=== PATIENT | male | born 1970 | race Caucasian/White ===

== ENCOUNTER 2018-03-25 21:40 | Inpatient (IN) ==
[2018-03-25] MEDS ORDERED: Aztreonam Inj 2 GM in Sodium Chloride 0.9% Inj 100 ML IV.SIG STA (22:29)
[2018-03-25] MEDS ORDERED: Ketorolac Inj 30 MG/ML (IVP) Vial IV.PUSH ONE (22:29)
[2018-03-25] MEDS ORDERED: Sod Chloride 0.9% Inj 1,000 ML IV.SIG SCH (22:30)
--- NOTE | 2018-03-25 22:57 | XR ---
EXAM DATE: 03/25/2018 10:40 PM EDT AGE/SEX: 47 years / Male INDICATIONS: Fever starting today CLINICAL DATA: This is the patient's initial encounter. Patient reports that signs and symptoms have been present for 1 day and indicates a pain score of 0/10. MEDICAL/SURGICAL HISTORY: None. None. COMPARISON: [facility] [place], CHEST SINGLE AP, 04/03/2016. . FINDINGS: A single AP view of the chest demonstrates the lungs to be symmetrically aerated without evidence of mass, infiltrate or effusion. The cardiomediastinal contours are unremarkable. Osseous structures a re intact. CONCLUSION: The lungs are clear. Electronically signed by: Yash Rider MD 03/25/2018 10:56 PM EDT
[2018-03-25 23:10] LABS: Baso % (Auto) 0.4 % (0.0-2.0); Eos # (Auto) 0.1 th/mm3 (0.0-0.4); Eos % (Auto) 0.9 % (0.0-4.0); Hematocrit 41.3 % (39.0-51.0); Lymph % (Auto) 14.1 % (9.0-44.0); Mean Corpuscular Hemoglobin 32.3 pg (27.0-34.0); Mean Corpuscular Volume 94.8 fL (80.0-100.0); Mean Platelet Volume 7.5 fL (7.0-11.0); Mono # (Auto) 0.7 th/mm3 (0.0-0.9); Mono % (Auto) 9.3 % (0.0-8.0); Neut # (Auto) 5.6 th/mm3 (1.8-7.7); Neut % (Auto) 75.3 % (16.0-70.0); Platelet Count 260 th/mm3 (150-450); Red Blood Count 4.35 mil/mm3 (4.50-5.90); Red Cell Distribution Width 12.3 % (11.6-17.2); White Blood Count 7.4 th/mm3 (4.0-11.0)
[2018-03-25 23:19] LABS: Chloride 98 meq/L (98-107); Potassium 3.4 meq/L (3.5-5.1); Sodium 136 meq/L (136-145)
[2018-03-25 23:22] LABS: Albumin 3.8 g/dL (3.4-5.0); Anion Gap 8 meq/L (5-15); Blood Urea Nitrogen 14 mg/dL (7-18); Calcium 8.9 mg/dL (8.5-10.1); Glucose,Random 97 mg/dL (74-106)
[2018-03-25 23:23] LABS: Prothrombin Time 10.2 sec (9.8-11.6)
[2018-03-25 23:25] LABS: Alanine Aminotransferase 19 U/L (12-78); Aspartate Aminotransferase 24 U/L (15-37)
[2018-03-25 23:26] LABS: Glomerular Filtration Rate 88 mL/min (>89)
[2018-03-25 23:27] LABS: Total Protein 7.8 g/dL (6.4-8.2)
[2018-03-25 23:28] LABS: Alkaline Phosphatase 111 U/L (45-117)
--- NOTE | 2018-03-26 02:24 | CT ---
EXAM DATE: 03/26/2018 1:58 AM EDT AGE/SEX: 47 years / Male INDICATIONS: Right side tooth pain and swollen for two days. CLINICAL DATA: This is the patient's initial encounter. Patient reports that signs and symptoms have been present for 2 days and indicates a pain score of 6/10. MEDICAL/SURGICAL HISTORY: None. None. RADIATION DOSE: 13.98 CTDI (mGy) COMPARISON: [facility] [place], MRI THORACIC SPINE W & W/O CONTRAST, 03/30/2016. . TECHNIQUE: Helical acquisition was performed using a multirow detector CT scanner during the adminis tration of 80 ml Omnipaque 350 (iohexol) nonionic water-soluble contrast as a single exam dose. Usi ng automated exposure control and adjustment of the mA and/or kV according to patient size, radiation dose was kept as low as reasonably achievable to obtain optimal diagnostic quality images. DICOM fo rmat image data is available electronically for review and comparison. FINDINGS: Nasopharynx: The nasopharyngeal airway has a normal configuration. No mucosal thickening or mass is seen. Oropharynx: The intrinsic muscles of the tongue are symmetric. The tonsillar pillars are intact. T he prevertebral soft tissues are not thickened. Larynx: The supraglottic, glottic, and infraglottic structures are intact. Parapharyngeal: The parapharyngeal space is intact. Salivary Glands: The parotid and submandibular glands are intact. Lymph Nodes: Borderline prominent anterior and posterior cervical chain nodes on the right are likel y reactive. Thyroid: Homogeneous enhancement without evidence of nodule. Bones: Unremarkable. Post Contrast: No abnormal areas of enhancement seen. Soft tissues: Stranding in subcutaneous soft tissues adjacent to the right mandible. No focal fluid c ollection CONCLUSION: 1. Nonspecific stranding in the subcutaneous tissues overlying the right mandible. Findings are most characteristic of a regional cellulitis. No associated abscess. 2. Likely reactive anterior and posterior cervical chain lymph nodes on the right. Electronically signed by: Carlitos Venegas MD 03/26/2018 2:23 AM EDT
[2018-03-26] MEDS ORDERED: Bisacodyl 10 MG Supp RECTAL PRN (02:48)
[2018-03-26] MEDS ORDERED: Acetaminophen 325 MG Tablet PO PRN (02:48)
[2018-03-26] MEDS: Sod Chloride 0.9% Inj 1,000 ML IV.CONT SCH ×3 (03:37→23:26)
--- NOTE | 2018-03-26 04:13 | ED ---
HPI General Chief complaint: Dental/Oral Stated complaint: R tooth pain/swollen x 2 days Source: patient Mode of arrival: ambulatory Limitations: no limitations History of Present Illness HPI Narrative: 47-year-old male presents to the ED with several day history of increasing right sided facial swelling and pain. While he has had pain in the teeth and gums on that side for some time on and off in the past 3 days the problem has gotten significantly worse. No change in voice, no trouble swallowing, no trouble with drooling, and no trouble breathing. He has poor dental health and cannot afford to see a dentist and therefore has not seen one in some time. He reports fevers and chills at home since last night. He is not taking any antibiotics. Related Data Home Medications Medication Instructions Recorded Confirmed No Known Home Medications 03/25/18 03/25/18 Allergies Allergy/AdvReac Type Severity Reaction Status Date / Time penicillin G Allergy Severe SWELLING Verified 03/25/18 21:51 STOPS BREATHING Review of Systems ROS: all other systems reviewed are negative PMFSH Medical History Medical History Patient denies medical problems (Acute) Surgical History Surgical History Hx of tonsillectomy (Acute) Social History Social History Substance History: No History of Abuse and Past History Second Hand Smoke Exposure: No Smoking Status: Current every day smoker Tobacco Type: Cigarettes How Often Do You Have a Drink Containing Alcohol: Never Recent Travel in [facility] within the Last 8 Weeks: No Recent Out of Country Travel within the Last 8 Weeks: No Immunization History Tetanus Immunization: Unsure Hx Influenza Vaccine This Season: No Exam Narrative Exam Narrative: GENERAL: 47-year-old man who is well-nourished and well- developed sitting in no acute distress. Patient's is accompanying him at bedside. SKIN: Focused skin assessment warm/dry. No rashes present. HEAD: Atraumatic. There is significant right-sided facial swelling that is tender to palpation. No drainage from his facial swelling. EYES: Pupils equal and round. No scleral icterus. No injection or drainage. ENT: No nasal bleeding or discharge. Mucous membranes pink and moist. Poor dentition with multiple cavities. The right-sided facial swelling extends to the gums. There is no purulent drainage. NECK: Trachea midline. No JVD. Tender right anterior cervical lymphadenopathy. CARDIOVASCULAR: Tachycardia, normal rhythm. No murmur appreciated. RESPIRATORY: No accessory muscle use. Clear to auscultation. Breath sounds equal bilaterally. GASTROINTESTINAL: Abdomen soft, non-tender, nondistended. Hepatic and splenic margins not palpable. MUSCULOSKELETAL: No obvious deformities. No clubbing. No cyanosis. No edema. NEUROLOGICAL: Awake and alert. No obvious cranial nerve deficits. Motor grossly within normal limits. Normal speech. PSYCHIATRIC: Appropriate mood and affect; insight and judgment normal. Course Hospital Course: Patient's heart rate improved with fluid bolus and Toradol. Pain improved with Toradol. Patient received broad-spectrum antibiotics per CMS guidelines as he met sepsis criteria. He did not receive a 30 cc a kilogram normal saline bolus because he was not hypotensive and his lactic acid was less than 4.0. The patient was admitted to the hospital under the care of Dr. Acuna. No fluid collection suggestive of abscess seen on patient's CT of his neck. Consultations Consultation #1: Spoke with Dr. Acuna and described the patient's case to her. Initial Documented Vital Signs Temperature 101.2 F H 03/25/18 21:51 Pulse Rate 111 H 03/25/18 21:51 Respiratory Rate 18 03/25/18 21:51 Blood Pressure 148/84 H 03/25/18 21:51 Pulse Oximetry 96 03/25/18 21:51 Last Documented Vital Signs Temperature 101.2 F H 03/25/18 22:03 Pulse Rate 90 03/26/18 03:24 Respiratory Rate 18 03/26/18 03:24 Blood Pressure 131/70 03/26/18 03:24 Pulse Oximetry 97 03/26/18 03:24 Medical Decision Making MDM Narrative Medical decision making narrative: Patient presents meeting CMS sepsis guidelines; therefore he will received the protocolized care that is demanded. Although I think that clindamycin would be a better choice for this penicillin allergic patient he must receive broad-spectrum antibiotics per CMS guidelines. Therefore I will order Flagyl in addition to aztreonam. I do not think that vancomycin is indicated because Flagyl should cover the majority of oral john and aztreonam will cover most gram negatives. I feel that Streptococcus or Staphylococcus or less likely as a cause for the patient's infection; this is most likely an odontogenic infection. Medical Screen Exam Complete: Yes Emergency Medical Condition: Yes Differential Diagnosis Differential Diagnosis: Sepsis, odontogenic infection, oral abscess, retropharyngeal abscess Medical Records Medical records reviewed: Yes I reviewed the patient's medical records. Lab Data Result diagrams: 03/25/18 22:45 03/25/18 22:45 Lab Results 03/25/18 03/25/18 03/25/18 Range/Units 22:45 22:45 22:45 CBC w Diff Auto diff final WBC 7.4 (4.0-11.0) th/mm3 RBC 4.35 L (4.50-5.90) mil/mm3 Hgb 14.0 (13.0-17.0) gm/dL Hct 41.3 (39.0-51.0) % MCV 94.8 (80.0-100.0) fL MCH 32.3 (27.0-34.0) pg MCHC 34.0 (32.0-36.0) % RDW 12.3 (11.6-17.2) % Plt Count 260 (150-450) th/mm3 MPV 7.5 (7.0-11.0) fL Neut % (Auto) 75.3 H (16.0-70.0) % Lymph % (Auto) 14.1 (9.0-44.0) % [place] % (Auto) 9.3 H (0.0-8.0) % Eos % (Auto) 0.9 (0.0-4.0) % Baso % (Auto) 0.4 (0.0-2.0) % Neut # (Auto) 5.6 (1.8-7.7) th/mm3 Lymph # (Auto) 1.0 (1.0-4.8) th/mm3 [place] # (Auto) 0.7 (0.0-0.9) th/mm3 Eos # (Auto) 0.1 (0.0-0.4) th/mm3 Baso # (Auto) 0.0 (0.0-0.2) th/mm3 WBC Differential . Differential Comment . PT 10.2 (9.8-11.6) sec INR 1.0 Ratio Sodium 136 (136-145) meq/L Potassium 3.4 L (3.5-5.1) meq/L Chloride 98 (98-107) meq/L Carbon Dioxide 30.0 (21.0-32.0) meq/L Anion Gap 8 (5-15) meq/L BUN 14 (7-18) mg/dL Creatinine 0.92 (0.60-1.30) mg/dL Estimated GFR 88 L (>89) mL/min Random Glucose 97 (74-106) mg/dL Lactic Acid (0.4-2.0) mmol/L Calcium 8.9 (8.5-10.1) mg/dL Total Bilirubin 0.4 (0.2-1.0) mg/dL AST 24 (15-37) U/L ALT 19 (12-78) U/L Alkaline Phosphatase 111 (45-117) U/L Total Protein 7.8 (6.4-8.2) g/dL Albumin 3.8 (3.4-5.0) g/dL 03/25/18 03/26/18 Range/Units 22:45 01:50 CBC w Diff WBC (4.0-11.0) th/mm3 RBC (4.50-5.90) mil/mm3 Hgb (13.0-17.0) gm/dL Hct (39.0-51.0) % MCV (80.0-100.0) fL MCH (27.0-34.0) pg MCHC (32.0-36.0) % RDW (11.6-17.2) % Plt Count (150-450) th/mm3 MPV (7.0-11.0) fL Neut % (Auto) (16.0-70.0) % Lymph % (Auto) (9.0-44.0) % [place] % (Auto) (0.0-8.0) % Eos % (Auto) (0.0-4.0) % Baso % (Auto) (0.0-2.0) % Neut # (Auto) (1.8-7.7) th/mm3 Lymph # (Auto) (1.0-4.8) th/mm3 [place] # (Auto) (0.0-0.9) th/mm3 Eos # (Auto) (0.0-0.4) th/mm3 Baso # (Auto) (0.0-0.2) th/mm3 WBC Differential Differential Comment PT (9.8-11.6) sec INR Ratio Sodium (136-145) meq/L Potassium (3.5-5.1) meq/L Chloride (98-107) meq/L Carbon Dioxide (21.0-32.0) meq/L Anion Gap (5-15) meq/L BUN (7-18) mg/dL Creatinine (0.60-1.30) mg/dL Estimated GFR (>89) mL/min Random Glucose (74-106) mg/dL Lactic Acid 2.1 H 0.6 (0.4-2.0) mmol/L Calcium (8.5-10.1) mg/dL Total Bilirubin (0.2-1.0) mg/dL AST (15-37) U/L ALT (12-78) U/L Alkaline Phosphatase (45-117) U/L Total Protein (6.4-8.2) g/dL Albumin (3.4-5.0) g/dL Imaging Data Radiologist's impression: Chest X-Ray 03/25/18 22:29 CONCLUSION: The lungs are clear. Soft Tissue Neck CT 03/25/18 22:29 CONCLUSION: 1. Nonspecific stranding in the subcutaneous tissues overlying the right mandible. Findings are most characteristic of a regional cellulitis. No associated abscess. 2. Likely reactive anterior and posterior cervical chain lymph nodes on the right. ECG Data Interpretation: Rate 98 bpm, rhythm normal sinus with regular P waves, NC interval 148 ms, QRS interval 87 ms, QTc interval 385 ms, there is no significant ST depression or elevation, this ECG is not consistent with STEMI. Discharge Plan Discharge Disposition Patient Disposition: 30 Still Patient Discharge Condition Condition: Fair Discharge Details Diagnosis: Dental infection, Sepsis Physicians Team ED Provider: Gene Paige Primary Care Provider: Primary Care Margo Cho Attending Provider: Robina Acuna Status ED Status: Left Department Discharge Information Discharge Date/Time: 03/26/18 03:55
[2018-03-26] MEDS: Clindamycin 900 mg/NS Premix 900 MG/50 ML PIGGYBACK IV.SIG SCH ×3 (06:25→23:27)
[2018-03-26 07:08] LABS: Lipase 57 U/L (73-393)
--- NOTE | 2018-03-26 08:06 | P.HP ---
History of Present Illness Primary Care Physician: No Primary Care Physician Chief Complaint: Tooth pain History of Present Illness: This is a 39-year-old male patient with no known medical history presented to the ED with complaints of right-sided facial swelling and pain. He states that he checked his tooth roughly 1 month ago and about 3 days ago he states that he has developed pain in the backside of his mouth. Increasing swelling. Patient states it has been difficult to eat on that side of his mouth. He denies any trouble swallowing or change in his voice. He denies any trouble breathing. He does admit to subjective fevers at home although did not take his temperature. He denies any recent shortness of breath, chest pain, abdominal, nausea, vomiting, diarrhea or dysuria. He denies taking anything for the pain at home. He denies any recent antibiotic or steroids. He does not follow with a dentist and has not seen one for years. Next CT does not show any abscess. - Diagnosis (1) Dental infection Inpatient Certification: I certify that the inpatient services were ordered in accordance with Medicare regulations governing the order. This includes certification that hospital inpatient services are reasonable and necessary and in the case of services not specified as inpatient-only under 42 CFR 419.22(n), that they are appropriately provided as inpatient services in accordance to with the 2-midnight benchmark under 43 CFR 412.3(e) Estimated Total Length of Stay (Days): 3 Plans for Post Hospital Care: Home Review of Systems All other systems reviewed negative except as stated in HPI PMFSH - History History Provided By: Patient - Medical History Medical History: Medical History (Last Reviewed 03/26/18 @ 04:05 by Gene Paige MD) Patient denies medical problems - Surgical History Surgical History: Surgical History (Last Reviewed 03/26/18 @ 04:05 by Gene Paige MD) Hx of tonsillectomy - Family History Family History: Family History (Last Updated 03/26/18 @ 08:21 by Dalia Mijares) Other No pertinent family history - Tobacco History Second Hand Smoke Exposure: No Tobacco Use In Past 30 Days: Yes Smoking Status: Current every day smoker Tobacco Type: Cigarettes Packs Per Day: 1 - Alcohol History How Often Do You Have a Drink Containing Alcohol: Never - Substance Use History Substance History: No History of Abuse, Past History - Travel History Recent Travel in the [facility] Within the Last 8 Weeks: No Recent Travel Out of the Country Within the Last 8 Weeks: No - Immunization History Tetanus Immunization: Unsure Hx Influenza Vaccine This Season: No Medications and Allergies Active Medications: Active Medications Acetaminophen (Tylenol) 650 mg PO Q4H PRN PRN Reason: Temp > 100.4 Last Admin: 03/26/18 04:15 Dose: 650 mg Al Hydroxide/Mg Hydroxide (Milk Of Magnesia Liq) 30 ml PO Q12H PRN PRN Reason: Mild Constipation Bisacodyl (Dulcolax Supp) 10 mg RECTAL DAILY PRN PRN Reason: SEVERE CONSITIPATION Sodium Chloride (Ns Inj) 1,000 mls @ 0 mls/hr IV.SIG BOLUS ELIZ Last Infusion: 03/25/18 23:45 Dose: Infused Clindamycin/Sodium Chloride (Cleocin 900 Mg/Ns Premix) 900 mg in 50 mls @ 100 mls/hr IV.SIG Q8H ELIZ Last Infusion: 03/26/18 07:03 Dose: Infused Sodium Chloride (Ns Inj) 1,000 mls @ 100 mls/hr IV.CONT .Q10H ELIZ Last Admin: 03/26/18 03:37 Dose: 100 mls/hr Lactulose (Lactulose Liq) 30 ml PO DAILY PRN PRN Reason: SEVERE CONSITIPATION Ondansetron HCl (Zofran Inj) 4 mg IV.PUSH Q6H PRN PRN Reason: NAUSEA OR VOMITING Senna/Docusate Sodium (Clover-Colace) 1 tab PO BID ELIZ Sennosides (Senokot) 17.2 mg PO Q12H PRN PRN Reason: Moderate Constipation Allergies Allergy/AdvReac Type Severity Reaction Status Date / Time penicillin G Allergy Severe SWELLING Verified 03/25/18 21:51 STOPS BREATHING Home Medications Medication Instructions Recorded Confirmed Type No Known Home Medications 03/25/18 03/25/18 History Exam Vital signs: Vital Signs 03/25/18 21:51 03/25/18 22:03 03/25/18 23:09 Temperature 101.2 F H 101.2 F H Pulse Rate 111 H 100 H Respiratory Rate 18 18 Blood Pressure 148/84 H 148/84 H Pulse Oximetry 96 96 97 03/25/18 23:10 03/26/18 01:33 08/25/18 03:24 Temperature Pulse Rate 96 H 93 H 90 Respiratory Rate 18 18 18 Blood Pressure 129/73 126/74 131/70 Pulse Oximetry 97 97 97 Intake & Output 03/25/18 03/26/18 03/26/18 18:59 06:59 18:59 Intake Total 1200 / 1200 50 / 50 Balance 1200 / 1200 50 / 50 Weight 80.1 kg Intake: IV 1200 / 1200 50 / 50 Azactam Inj 2 GM In NS Inj 100 100 / 100 ML @ 200 mls/hr IV.SIG STAT STA Rx#:[id number] Cleocin 900 mg/NS Premix 900 mg 50 / 50 In 50 ml @ 100 mls/hr IV.SIG Q8H ELIZ Rx#:[id number] NS Inj 1,000 ML @ Wide Open IV. 1000 / 1000 SIG BOLUS ELIZ Rx#:[id number] Flagyl 500 MG Inj 100 ML @ 100 100 / 100 mls/hr IV.SIG STAT STA Rx#: [id number] Other: # Voids 0 Narrative: GENERAL: Well-developed, well-nourished patient in NAD. SKIN: Warm and dry. No rash. HEAD: Normocephalic. Atraumatic. EYES: Pupils equal and round. No scleral icterus. No injection or drainage. ENT: No nasal bleeding or discharge. Mucous membranes pink and moist. Right cheek swelling. Erythema to posterior right side of his mouth. Chipped tooth noted. No erythematous or swelling of throat. Adenopathy of right cervical lymph nodes. NECK: Supple. Trachea midline. CARDIOVASCULAR: Regular rate and rhythm. S1, S2 noted. No murmur appreciated. RESPIRATORY: No accessory muscle use. Clear to auscultation. Breath sounds equal bilaterally. GASTROINTESTINAL: Abdomen soft, non-tender, nondistended. Normoactive bowel sounds x4. MUSCULOSKELETAL: No obvious deformities. Extremities without clubbing, cyanosis , or edema. NEUROLOGICAL: Awake and alert. No obvious cranial nerve deficits. Motor grossly within normal limits. 5/5 muscle strength in bilateral upper and lower extremities. Normal speech. PSYCHIATRIC: Appropriate mood and affect; insight and judgment normal. Results - Labs CBC & Chem 7: 03/25/18 22:45 03/25/18 22:45 Labs: Laboratory Results - last 24 hr 03/25/18 03/25/18 03/25/18 22:45 22:45 22:45 CBC w Diff Auto diff final WBC 7.4 RBC 4.35 L Hgb 14.0 Hct 41.3 MCV 94.8 MCH 32.3 MCHC 34.0 RDW 12.3 Plt Count 260 MPV 7.5 Neut % (Auto) 75.3 H Lymph % (Auto) 14.1 [place] % (Auto) 9.3 H Eos % (Auto) 0.9 Baso % (Auto) 0.4 Neut # (Auto) 5.6 Lymph # (Auto) 1.0 [place] # (Auto) 0.7 Eos # (Auto) 0.1 Baso # (Auto) 0.0 WBC Differential . Differential Comment . PT 10.2 INR 1.0 Sodium 136 Potassium 3.4 L Chloride 98 Carbon Dioxide 30.0 Anion Gap 8 BUN 14 Creatinine 0.92 Estimated GFR 88 L Random Glucose 97 Lactic Acid Calcium 8.9 Total Bilirubin 0.4 AST 24 ALT 19 Alkaline Phosphatase 111 Total Protein 7.8 Albumin 3.8 Lipase 57 L 03/25/18 03/26/18 22:45 01:50 CBC w Diff WBC RBC Hgb Hct MCV MCH MCHC RDW Plt Count MPV Neut % (Auto) Lymph % (Auto) [place] % (Auto) Eos % (Auto) Baso % (Auto) Neut # (Auto) Lymph # (Auto) [place] # (Auto) Eos # (Auto) Baso # (Auto) WBC Differential Differential Comment PT INR Sodium Potassium Chloride Carbon Dioxide Anion Gap BUN Creatinine Estimated GFR Random Glucose Lactic Acid 2.1 H 0.6 Calcium Total Bilirubin AST ALT Alkaline Phosphatase Total Protein Albumin Lipase - Imaging Impressions Chest X-Ray 03/25/18 22:29 CONCLUSION: The lungs are clear. Soft Tissue Neck CT 03/25/18 22:29 CONCLUSION: 1. Nonspecific stranding in the subcutaneous tissues overlying the right mandible. Findings are most characteristic of a regional cellulitis. No associated abscess. 2. Likely reactive anterior and posterior cervical chain lymph nodes on the right. Caprini VTE Risk Assessment Caprini VTE Risk Assessment: No/Low Risk (score <= 1) Caprini Risk Assessment Model: Point Value = 1 Point Value = 2 Point Value = 3 Point Value = 5 Age 41-60 Minor surgery BMI > 25 kg/m2 Swollen legs Varicose veins or History of unexplained or recurrent spontaneous Oral contraceptives or hormone replacement Sepsis (< 1 month) Serious lung disease, including pneumonia (< 1 month) Abnormal pulmonary function Acute myocardial infarction Congestive heart failure (< 1 month) History of inflammatory bowel disease Medical patient at bed rest Age 61-74 Arthroscopic surgery Major open surgery (> 45 min) Laparoscopic surgery (> 45 min) Malignancy Confined to bed (> 72 hours) Immobilizing plaster cast Central venous access Age >= 75 History of VTE Family history of VTE Factor V Leiden Prothrombin [id number] Lupus anticoagulant Anticardiolipin antibodies Elevated serum homocysteine Heparin-induced thrombocytopenia Other congenital or acquired thrombophilia Stroke (< 1 month) Elective arthroplasty Hip, pelvis, or leg fracture Acute spinal cord injury (< 1 month) Prophylaxis Regimen: Total Risk Factor Score Risk Level Prophylaxis Regimen 0-1 Low Early ambulation 2 Moderate Order ONE of the following: *Sequential Compression Device (SCD) *Heparin 5000 units SQ BID 3-4 Higher Order ONE of the following medications: *Heparin 5000 units SQ TID *Enoxaparin/Lovenox 40 mg SQ daily (WT < 150 kg, CrCl > 30 mL/min) *Enoxaparin/Lovenox 30 mg SQ daily (WT < 150 kg, CrCl > 10-29 mL/min) *Enoxaparin/Lovenox 30 mg SQ BID (WT < 150 kg, CrCl > 30 mL/min) AND/OR *Sequential Compression Device (SCD) 5 or more Highest Order ONE of the following medications: *Heparin 5000 units SQ TID (Preferred with Epidurals) *Enoxaparin/Lovenox 40 mg SQ daily (WT < 150 kg, CrCl > 30 mL/min) *Enoxaparin/Lovenox 30 mg SQ daily (WT < 150 kg, CrCl > 10-29 mL/min) *Enoxaparin/Lovenox 30 mg SQ BID (WT < 150 kg, CrCl > 30 mL/min) AND *Sequential Compression Device (SCD) Assessment and Plan - Assessment (1) Dental infection Code(s): K04.7 - Periapical abscess without sinus Status: Acute - Plan This is a 47-year-old male patient with: Dental infection in the right sided now Sepsis suspect secondary to above -Patient presented with worsening pain, swelling to right side of mouth and face. -CT of the neck soft tissue was done and reviewed showing nonspecific stranding in the subcu tissues overlying the right mandible. Characteristic of regional cellulitis. No associated abscess. -Met SEPSIS criteria with tachycardia, fever of 101 and elevated lactic acid. Suspected source dental infection. -Blood cultures ordered and pending. Will follow growth. -Patient started on clindamycin IV. Will continue. Continue on IV fluids. -Pain control with IV Toradol scheduled as well as [place] as needed for pain scale. -Will start short course of steroids. -Continue to monitor improvement. Supportive care. DVT prophylaxis: SCDs.
[2018-03-26] MEDS: Senna/Docusate Sodium 8.6/50 MG Tablet PO SCH ×2 (08:40→20:30)
[2018-03-26] MEDS: Ketorolac Inj 30 MG/ML (IVP) Vial IV.PUSH SCH ×3 (08:40→20:29)
[2018-03-26] MEDS ORDERED: MethylPREDNISolone Sod Succinate Inj 40 MG/ML Vial IV.PUSH ONE (09:15)
--- NOTE | 2018-03-26 12:57 | ECG ---
Date Performed: 03/25/2018 Time Performed: 22:42:07 PTAGE: 47 years EKG: Sinus rhythm NORMAL ECG PREVIOUS TRACING : 02/18/2005 16.41 Since the previous tracing, no significant change noted DOCTOR: Fahad Cruz Interpretating Date/Time 03/26/2018 12:56:17
[2018-03-27] MEDS: Ketorolac Inj 30 MG/ML (IVP) Vial IV.PUSH SCH ×2 (03:55→08:54)
[2018-03-27] MEDS: Clindamycin 900 mg/NS Premix 900 MG/50 ML PIGGYBACK IV.SIG SCH (06:35)
[2018-03-27 07:07] LABS: Baso % (Auto) 0.3 % (0.0-2.0); Eos % (Auto) 0.4 % (0.0-4.0); Hematocrit 36.3 % (39.0-51.0); Hemoglobin 12.1 gm/dL (13.0-17.0); Lymph # (Auto) 1.7 th/mm3 (1.0-4.8); Lymph % (Auto) 17.5 % (9.0-44.0); Mean Corpuscular HGB Conc 33.3 % (32.0-36.0); Mean Corpuscular Hemoglobin 31.8 pg (27.0-34.0); Mean Corpuscular Volume 95.5 fL (80.0-100.0); Mean Platelet Volume 7.7 fL (7.0-11.0); Mono # (Auto) 1.1 th/mm3 (0.0-0.9); Mono % (Auto) 11.5 % (0.0-8.0); Neut # (Auto) 6.7 th/mm3 (1.8-7.7); Neut % (Auto) 70.3 % (16.0-70.0); Platelet Count 252 th/mm3 (150-450); Red Cell Distribution Width 12.2 % (11.6-17.2); White Blood Count 9.5 th/mm3 (4.0-11.0)
[2018-03-27 07:31] LABS: Anion Gap 5 meq/L (5-15); Blood Urea Nitrogen 13 mg/dL (7-18); Calcium 8.1 mg/dL (8.5-10.1); Carbon Dioxide 24.6 meq/L (21.0-32.0); Chloride 114 meq/L (98-107); Glomerular Filtration Rate Greater Than 89 mL/min (>89); Glucose,Random 108 mg/dL (74-106); Potassium 4.1 meq/L (3.5-5.1); Sodium 144 meq/L (136-145)
[2018-03-27] MEDS: Senna/Docusate Sodium 8.6/50 MG Tablet PO SCH (08:54)
--- NOTE | 2018-03-27 09:38 | P.PN ---
Subjective Interval history: Follow-up right dental infection. Patient seen and examined, sitting in bed comfortably no apparent distress. Much improved overnight. Swelling is significantly decreased. Erythema and mouth has decreased. No pain to touch. Adenopathy on the right cervical chain has improved. Afebrile overnight. MT home follow-up with PCP and dentist. Patient does have insurance, does have follow-up is agreeable to the plan. Physical Exam Vital signs: Vital Signs 03/26/18 12:00 03/26/18 16:00 03/26/18 20:00 Temperature 97.7 F 97.2 F L 97.3 F L Pulse Rate 68 60 85 Respiratory Rate 16 17 20 Blood Pressure 107/67 114/70 126/68 Pulse Oximetry 99 98 97 03/27/18 00:00 03/27/18 04:00 03/27/18 08:00 Temperature 97.0 F L 97.2 F L 97.9 F Pulse Rate 67 61 61 Respiratory Rate 21 20 17 Blood Pressure 119/69 137/76 157/82 H Pulse Oximetry 97 99 100 Intake & Output 03/26/18 03/27/18 03/27/18 18:59 06:59 18:59 Intake Total 1340 / 1340 530 / 530 50 / 50 Balance 1340 / 1340 530 / 530 50 / 50 Weight 80 kg Intake: IV 1100 / 1100 50 / 50 50 / 50 NS Inj 1,000 ML @ 100 mls/hr IV 1000 / 1000 0 / 0 .CONT .Q10H ELIZ Rx#:[id number] Cleocin 900 mg/NS Premix 900 mg 100 / 100 50 / 50 50 / 50 In 50 ml @ 100 mls/hr IV.SIG Q8H ELIZ Rx#:[id number] Oral 240 / 240 480 / 480 Other: # Voids 3 3 Narrative: GENERAL: Well-developed, well-nourished patient in NAD. SKIN: Warm and dry. No rash. Mild right cervical adenopathy. No pain palpation. HEAD: Normocephalic. Atraumatic. EYES: Pupils equal and round. No scleral icterus. No injection or drainage. ENT: No nasal bleeding or discharge. Mucous membranes pink and moist. NECK: Supple. Trachea midline. CARDIOVASCULAR: Regular rate and rhythm. S1, S2 noted. No murmur appreciated. RESPIRATORY: No accessory muscle use. Clear to auscultation. Breath sounds equal bilaterally. GASTROINTESTINAL: Abdomen soft, non-tender, nondistended. Normoactive bowel sounds x4. MUSCULOSKELETAL: No obvious deformities. Extremities without clubbing, cyanosis , or edema. NEUROLOGICAL: Awake and alert. No obvious cranial nerve deficits. Motor grossly within normal limits. 5/5 muscle strength in bilateral upper and lower extremities. Normal speech. PSYCHIATRIC: Appropriate mood and affect; insight and judgment normal. Results - Labs CBC & Chem 7: 03/27/18 06:40 03/27/18 06:40 Laboratory Results - last 24 hr 03/26/18 03/27/18 03/27/18 10:40 06:40 06:40 CBC w Diff Auto diff final WBC 9.5 RBC 3.80 L Hgb 12.1 L Hct 36.3 L MCV 95.5 MCH 31.8 MCHC 33.3 RDW 12.2 Plt Count 252 MPV 7.7 Neut % (Auto) 70.3 H Lymph % (Auto) 17.5 [place] % (Auto) 11.5 H Eos % (Auto) 0.4 Baso % (Auto) 0.3 Neut # (Auto) 6.7 Lymph # (Auto) 1.7 [place] # (Auto) 1.1 H Eos # (Auto) 0.0 Baso # (Auto) 0.0 WBC Differential . Differential Comment . Sodium 144 Potassium 4.1 Chloride 114 H D Carbon Dioxide 24.6 Anion Gap 5 BUN 13 Creatinine 0.67 Estimated GFR Greater than 89 POC Glucose 90 Random Glucose 108 H Calcium 8.1 L D Magnesium 2.0 Microbiology 03/25/18 22:45 Blood - Peripheral Aerobic Blood Culture - Preliminary No growth in 1 day 03/25/18 22:45 Blood - Peripheral Anaerobic Blood Culture - Preliminary No growth in 1 day 03/25/18 22:50 Blood - Peripheral Aerobic Blood Culture - Preliminary No growth in 1 day 03/25/18 22:50 Blood - Peripheral Anaerobic Blood Culture - Preliminary No growth in 1 day Assessment and Plan - Assessment (1) Dental infection Code(s): K04.7 - Periapical abscess without sinus Status: Acute - Plan This is a 47-year-old male patient with: Dental infection in the right side Sepsis. Improved. -Patient presented with worsening pain, swelling to right side of mouth and face. -CT of the neck soft tissue was done and reviewed showing nonspecific stranding in the subcu tissues overlying the right mandible. Characteristic of regional cellulitis. No associated abscess. -Met SEPSIS criteria with tachycardia, fever of 101 and elevated lactic acid. Suspected source dental infection. -Blood cultures negative to date. -Patient started on clindamycin IV. Will continue on PO today on DC. -Pain control with IV Toradol scheduled as well as [place] as needed for pain scale. Pain is well controlled. Patient does not want pain medication for home. -Improved with steroid yesterday, Will prescribe a couple days steroids. Discharge Planning: Dc home. Much improvement. Activity as tolerated. Follow up PCP and dentist, refer to oral surgeon. Prescriptions per discharge.
[2018-03-27] MEDS: Sod Chloride 0.9% Inj 1,000 ML IV.CONT SCH (10:53)
== END 2018-03-27 10:37 | disposition home or self-care (01) ==
LOC: PHEDA 21:40 → PHED 21:40 → PH3 03-26 03:46
PROVIDERS: ADMIT Hospitalist; ATTEND Hospitalist